=== PATIENT | female | born 1960 | race Caucasian/White ===

== ENCOUNTER 2022-11-20 13:35 | Emergency (ER) | payer MEDICARE ==
[~2022-11-20] VITALS: Ht 165.1 cm; Wt 65.0 kg
[~2022-11-20 13:35] MED LIST: B12/1TAB3; CALC260T6 PO; CHOL10002 PO; DOXY150T3; FURO-150 PO; MULT-1179 PO; POTA-192 PO
[2022-11-20 14:29] VITALS: BP 143/92
[2022-11-20] MEDS ORDERED: dexamethasone sod phosphate 10mg/ml inj IM STA (15:45)
[2022-11-20] MEDS ORDERED: diphenhydrAMINE 50 mg/ml inj IM ONE (15:45)
[2022-11-20] MEDS ORDERED: triamcinolone acet 0.1% cream 15gm TP ONE (16:00)
[2022-11-20] MEDS ORDERED: triamcinolone acet 0.1% cream 15gm TP SCH (20:00)
== END 2022-11-20 16:23 | disposition home or self-care (01) ==
LOC: ER 13:36
DX: S40.869A Insect bite (nonvenomous) of unspecified upper arm, initial encounter (principal); Z88.0 Allergy status to penicillin; W57.XXXA Bitten or stung by nonvenomous insect and other nonvenomous arthropods, initial encounter; Y93.89 Activity, other specified; Y92.89 Other specified places as the place of occurrence of the external cause; Y99.8 Other external cause status
CPT/HCPCS: 96372; 99284; J1100; J1200